=== PATIENT | female | born 1975 | race Caucasian/White ===

== ENCOUNTER → 2016-05-17 | Outpatient (CLI) | payer OTHER ==
--- NOTE | 2016-05-17 10:45 | US ---
Transabdominal and Endovaginal Pelvic Sonography Clinical History: 40-year-old female who presents for follow-up of a right ovarian cyst. She has a pr evious history of menorrhagia. ICD 10 Diagnostic Code: N92.0 TECHNIQUE: A curvilinear 5 MHz transducer was initially used to sonographically evaluate the pelvis, using a full urinary bladder as a window. To better assess the uterine architecture and the adnexal s tructures, endovaginal pelvic sonography was also performed. Color and spectral Doppler were used. Comparison: Pelvic sonography, dated 03/04/2016. Findings: Transabdominal Pelvic Sonography: The uterus is normal in size, shape, and position, measuring 9.1 x 5.6 x 4.2 cm. The right and left ovaries are identified. There is no free fluid. Endovaginal Pelvic Sonography: The endometrium is homogeneous, and measures 8.0 mm. There is a stable 4 x 4 by 5 mm hypoechoic fibroid in the upper right uterine body, intramural in location. The right ovary measures 1.9 x 1.4 x 2.0 cm. Since the previous study, the 1.9 cm hemorrhagic follicular cyst h as resolved. The left ovary measures 2.8 x 2.4 x 3.1cm. There is a new partially-septated 2.4 x 2.1 x 2.1 cm otherwise anechoic cyst. Normal arterial blood flow is documented to both ovaries by Doppler ultrasound. The resistive index associated with the right ovary is 0.52, and with the left ovary is 0.40. There is a tiny amount of free fluid in the pelvic cul-de-sac. There are a couple benign-appear ing nabothian cysts at the level of the cervix. Impression: 1. Interim resolution of a hemorrhagic follicular cyst associated with the right ovary since 6. 2. Interval development of a partially septated although otherwise simple-appearing 2.4 cm left ovari an cyst with no evidence of torsion. 3. Tiny amount of free fluid in the cul-de-sac. 4. Normal appearance to the endometrium. 5. There is a 5 mm intramural fibroid in the upper right uterine body.
== END ==
LOC: FIMAGING 09:28
PROVIDERS: ATTEND Internal Medicine
DX: N83.291 Other ovarian cyst, right side (principal); D25.1 Intramural leiomyoma of uterus

== ENCOUNTER → 2016-08-10 | Outpatient (CLI) | payer OTHER | LOC: FIMAGING 09:47 | PROVIDERS: ATTEND Internal Medicine | DX: N64.59 Other signs and symptoms in breast (principal); R92.8 Other abnormal and inconclusive findings on diagnostic imaging of breast ==

== ENCOUNTER → 2017-01-28 | Outpatient (CLI) | payer OTHER | LOC: FIMAGING 12:13 | PROVIDERS: ATTEND Internal Medicine | DX: Z12.31 Encounter for screening mammogram for malignant neoplasm of breast (principal) | CPT/HCPCS: G0202 ==

== ENCOUNTER → 2017-02-04 | Outpatient (CLI) | payer OTHER | LOC: FIMAGING 12:22 | PROVIDERS: ATTEND Internal Medicine | DX: R92.8 Other abnormal and inconclusive findings on diagnostic imaging of breast (principal) ==

== ENCOUNTER → 2017-08-23 | Outpatient (CLI) | payer BC | LOC: FIMAGING 12:44 | PROVIDERS: ATTEND Internal Medicine | DX: M25.532 Pain in left wrist (principal) ==

== ENCOUNTER → 2018-02-17 | Outpatient (CLI) | payer BC | LOC: FIMAGING 13:00 | PROVIDERS: ATTEND Obstetrics & Gynecology | DX: N60.01 Solitary cyst of right breast (principal); N60.02 Solitary cyst of left breast ==

== ENCOUNTER → 2018-09-13 | Outpatient (CLI) | payer BC | LOC: FIMAGING 13:56 ==